=== PATIENT | male | born 1950 | race Caucasian/White ===

== ENCOUNTER → 2018-08-28 | Outpatient (CLI) | payer MEDICARE, OTHER ==
--- NOTE | 2018-08-28 14:08 | RAD ---
MR#: [id number] Date of Study: 08/28/2018 Ordering Physician: AZUCENA MCKNIGHT, Referring Physician: AZUCENA MCKNIGHT, Tech: ARMANDO Luna, RDMS, RTR APPROVED REPORT Patient Location : OUT-PATIENT Indications Lower Extremity Pain : Bilateral Lower Extremity Edema : Left Deep System Deep Venous Thrombosis present : No Greater Saphenous Veins (GSV) Significant venous relux noted in the RIGHT GSV at the following levels : Superficial Femoral Junctio n Significant venous relux noted in the LEFT GSV at the following levels : Superficial Femoral Junction Lesser Saphenous Veins (LSV) Right Thigh extension noted : No Leftt Thigh extension noted : No Right Giacomini Vein : Present : No Reflux : No Leftt Giacomini Vein : Present : No Reflux : No Accessory Veins Right Anterior Accessory Vein : Present : Yes Reflux : No Leftt Anterior Accessory Vein : Present : Yes Reflux : Yes Right Posterior Accessory Vein : Present : No Reflux : No Left Posterior Accessory Vein : Present : Yes Reflux : No Findings Grayscale images of the left greater and lesser saphenous veins and significant venous varicosities a long the medial aspect of the left knee do not demonstrate any obvious evidence of thrombus. There is significant reflux noted in the left anterior accessory saphenous vein and left great saphen ous vein of more than one second. The anterior accessory saphenous vein has a reflux time of 2.8 seco nds. The left great saphenous vein has a reflux time of 2.5 seconds. Multiple B knee varicosities are measuring largest at approximately 15.2 mm and have a reflux time of 3.2 seconds. Negative for reflux in the right greater and lesser saphenous veins. Negative for reflux in the left lesser saphenous vein. Critical Notification Critical Value: No <Conclusion> 1. Significant venous varicosities and reflux in the left lower extremity. Signed by : Azucena Mcknight, Electronically Approved : 08/28/2018 14:07:43
--- NOTE | 2018-08-28 14:11 | RAD ---
MR#: [id number] Date of Study: 08/28/2018 Ordering Physician: AZUCENA MCKNIGHT, Referring Physician: AZUCENA MCKNIGHT, Tech: ARMANDO Luna, RDMS, RTR APPROVED REPORT Bilateral Lower Extremity Venous Study for DVT Patient Location: OUT-PATIENT Indications Lower Extremity Pain: Bilateral Lower Extremity Edema: Left Findings The bilateral lower extremity deep veins were evaluated for thrombus with color Doppler, spectral and grayscale images. On the right the grayscale images of the common femoral, superficial femoral and popliteal veins do n ot demonstrate any evidence of thrombus and these veins appear to be compressible. The below-knee vei ns were not well visualized but grossly appear to be compressible. Spectral imaging and color Doppler do not reveal any evidence of obstruction to flow with normal respirophasic variation above the knee . Below the knee there is spontaneous flow noted. On the left, the grayscale images of the common femoral, superficial femoral and popliteal veins do n ot demonstrate any evidence of thrombus and these veins appear to be compressible. The below-knee vei ns again were not well visualized but grossly appear to be compressible. Spectral imaging and color D oppler do not reveal any evidence of obstruction to flow with normal respirophasic variation above th e knee. The below-knee veins demonstrate spontaneous flow. Critical Notification Critical Value: No <Conclusion> 1. Negative for DVT in the BLE. Signed by : Azucena Mcknight, Electronically Approved : 08/28/2018 14:10:43
== END | disposition home or self-care (01) ==
LOC: US 07:43
PROVIDERS: ATTEND Internal Medicine Cardiovascular Disease
DX: I83.93 Asymptomatic varicose veins of bilateral lower extremities (principal); I87.2 Venous insufficiency (chronic) (peripheral)
CPT/HCPCS: 93970

== ENCOUNTER → 2018-09-16 | Outpatient (CLI) | payer MEDICARE, OTHER ==
--- NOTE | 2018-09-16 15:21 | CARD ---
MR#: [id number] Date of Study: 09/16/2018 Ordering Physician: NANI WADE, Referring Physician: NANI WADE, Tech: Irish Contreras RVT; Vikram VALLES APPROVED REPORT Patient StatusOUT-PATIENT Emergency Medical Technician/Driver: Irish Contreras RVT; Vikram STOLL;THANG Procedure(s) performed: Endovenous VenaSeal ablation of the Left greater saphenous vein. INDICATION FOR PROCEDURE The indication(s) include : Symptomatic Chronic Venous Insufficiency with Varicose Veins, lower extre mity pain and edema. PROCEDURE NARRATIVE After explaining the risks, benefits and alternative options, informed consent was obtained from kyung ent. Patient was brought to the procedure suite and duplex ultrasound was used to map out the insuffi cient saphenous vein. The access site was determined and marked on the overlying skin. The depth and diameter of the vein (s) to be treated was documented. The patient was placed supine on the procedure table and the leg was prepped and draped using sterile technique. Ultrasound guidance was again used to localize the access site. 1% lidocaine was injected into the sk in and subcutaneous tissues for local anesthesia. Using ultrasound guidance, access was obtained in t he saphenous vein with a 19-gauge thin-walled needle followed by introduction of a short guidewire. T he intraluminal location was confirmed with ultrasound and a 7 Pashto 7 cm sheath was inserted into t he vein. A 0.035 inch guidewire from the Venaseal kit was then introduced and positioned at the saphe nofemoral junction using ultrasound guidance. The 80 cm 7 Pashto introducer sheath/dilator was positi oned 5 cm from the saphenofemoral junction. The guidewire and dilator were removed and the remaining sheath was flushed with sterile saline, with the syringe remaining in place prior to the next steps. The Cyanoacrylate adhesive was loaded into a 3 cc syringe that was then attached to the 5F delivery c athter and loaded on to the Dispenser gun.The catheter was primed precisely and this 'assembly' was i ntroduced through the 7 Pashto sheath and positioned 5 cm caudal to the saphenofemoral junction under ultrasound guidance. While applying compression cephalad to the cathter tip with the ultrasound claros sducer, 0.10 cc of the VenaSeal adhesive was delivered into the vein by pulling the trigger of the di lex gun. The catheter was pulled back 1 cm and another 0.10 cc of the adhesive was delivered foll owing which the catheter was pulled back 3 cm. Compression was applied over the vein for 3 minutes. T he catheter tip position was confirmed again using the ultrasound, 0.10 cc Venaseal adhesive delivere d, catheter pulled back 3 cm and compression applied for 30 seconds. These steps were repeated to tr eat the entire length of the incompetent vein. Following the last injection and compression sequence, the catheter and introducer sheath were pulled out from the access site. Hemostasis was achieved with manual compression and an adhesive bandage wa s applied to the incision. Ultrasound confirmed complete coaptation and closure of the treated segmen ts of the greater saphenous vein, and the absence of any DVT at the saphenofemoral junction. Vein kate gth treated was 43 cm. The drapes were removed and the patient cleaned and prepared for discharge. Patient tolerated the pro cedure well. There were no immediate complications. Postop ultrasound check scheduled for 48-72 hours and the patient was given written postop instructions. Signed by : Nani Wade, Electronically Approved : 09/16/2018 15:20:58
== END | disposition home or self-care (01) ==
LOC: VNUS 13:36
PROVIDERS: ATTEND Internal Medicine Cardiovascular Disease
DX: I83.812 Varicose veins of left lower extremity with pain (principal); I87.2 Venous insufficiency (chronic) (peripheral)
CPT/HCPCS: 36482

== ENCOUNTER → 2018-09-17 | Outpatient (CLI) | payer MEDICARE, OTHER ==
--- NOTE | 2018-09-17 16:18 | RAD ---
MR#: [id number] Date of Study: 09/17/2018 Ordering Physician: NANI HERRING, Referring Physician: NANI HERRING, Tech: Giovanny Vasquez MBA, RDMS, RVT, RDCS, RTR APPROVED REPORT Left Lower Extremity Venous Study for DVT Patient Location: OUT-PATIENT Indications post lt gsv venasel Vein Imaging (Left) CFV (L): Compressible SFJ (L): Compressible FEM (L): Compressible POP (L): Compressible DFV (L): Compressible PTV (L): Spontaneous GSV (L): Absent Flow Peroneals (L): Spontaneous Doppler Evaluation (Left) CFV (L):Spontaneous POP (L):Spontaneous Findings Grayscale images of the left lower extremity deep veins does not reveal any obvious evidence of throm bus. The common femoral, superficial femoral and popliteal veins appear to be compressible. No eviden ce of flow restriction is noted in the below-knee veins. The left great saphenous vein does not show any evidence of flow and is consistent with recent ablation with thrombus noted. No extension to the saphenofemoral junction is visible. Critical Notification Critical Value: No <Conclusion> 1. Successful left GSV ablation 2. No left lower extremity DVT Signed by : Travis Haddad, Electronically Approved : 09/17/2018 16:18:15
== END | disposition home or self-care (01) ==
LOC: US 14:44
PROVIDERS: ATTEND Internal Medicine Cardiovascular Disease
DX: I87.2 Venous insufficiency (chronic) (peripheral) (principal)
CPT/HCPCS: 93971